=== PATIENT | male | born 1980 | race Caucasian/White ===

== ENCOUNTER 2024-04-26 15:29 | Emergency (ER) | payer SELFPAY ==
[~2024-04-26] VITALS: Ht 185.4 cm; Wt 83.9 kg
[2024-04-26 15:50] VITALS: BP 137/80; TEMP 98.4; O2SAT 100
[2024-04-26] MEDS ORDERED: HYDROCODONE/APAP 5/325MG TABLET ONE (15:54)
[2024-04-26] MEDS: HYDROCODONE/APAP 5/325MG TABLET PO ONE (15:55)
[2024-04-26] MEDS ORDERED: IBUP-1953 PO (16:45)
[2024-04-26] MEDS ORDERED: ACET-2030 PO (16:45)
== END 2024-04-26 17:38 | disposition home or self-care (01) ==
LOC: ER 15:29
DX: S69.81XA Other specified injuries of right wrist, hand and finger(s), initial encounter (principal); W18.39XA Other fall on same level, initial encounter; Y93.89 Activity, other specified; Y92.89 Other specified places as the place of occurrence of the external cause; Y99.8 Other external cause status
CPT/HCPCS: 73030-TC; 73060-TC; 73080-TC